=== PATIENT | female | born 1990 | race Two or more races ===

== ENCOUNTER → 2024-05-01 | Outpatient (CLI) | payer OTHER ==
[~2024-05-01] VITALS: Ht 162.6 cm; Wt 65.8 kg
[~2024-05-01] MED LIST: 0.9%NACL 1000ML 1,000 ML IV ONE
== END | disposition home or self-care (01) ==
LOC: DAH 10:00 → EDSTATUS 05-05 13:50
PROVIDERS: ATTEND Internal Medicine Gastroenterology
DX: R19.7 Diarrhea, unspecified (principal); R10.13 Epigastric pain
CPT/HCPCS: 81025; J7030